=== PATIENT | female | born 1995 | race American Indian/Alaskan Native ===

== ENCOUNTER 2019-06-09 02:52 | Emergency (ER) | payer SELFPAY ==
[2019-06-09 03:09] VITALS: BP 112/71
[2019-06-09] MEDS ORDERED: NORCO 5/325 PO ONE (03:17)
--- NOTE | 2019-06-09 03:20 | Emergency Department Report ---
HPI - General Chief Complaint: Dental/Oral Time Seen by Provider: 06/09/19 03:16 - HPI HPI: 24-year-old -[place] female presents to the emergency department with a complaint of a toothache to the left lower jaw for the past 2-3 days. She went to see a dentist and was placed on ibuprofen and amoxicillin and she says she is supposed to get the tooth pulled. She has an appointment coming up next Thursday but says that the pain increased despite taking the prescribed medications. No fever. No drooling. No difficulty swallowing. She denies any other past medical history. She denies any tobacco or illicit drug use. ED Past Medical Hx - Past Medical History Previous Medical History?: No - Surgical History Past Surgical History?: No - Social History Smoking Status: Never Smoker Substance Use Type: Marijuana ED Review of Systems ROS: Stated complaint: TOOTHACHE Other details as noted in HPI Comment: All other systems reviewed and negative Constitutional: denies: chills, fever ENT: dental pain. denies: throat pain Physical Exam - Physical Exam Vital Signs: Vital Signs 06/09/19 03:00 Temperature 98.0 F Pulse Rate 82 Respiratory 18 Rate Blood Pressure 112/71 O2 Sat by Pulse 100 Oximetry Physical Exam: GENERAL: The patient is well-developed well-nourished. HENT: Normocephalic. Atraumatic. Patient has moist mucous membranes. EYES: Extraocular motions are intact. NECK: Supple. Trachea is midline. ABDOMEN: There is no abdominal distention. SKIN: Skin is warm and dry. NEURO: The patient is awake, alert, and oriented. The patient is cooperative. The patient has no focal neurologic deficits. Normal speech. MUSCULOSKELETAL: There is no tenderness or deformity. There is no evidence of acute injury. ED Course Vital Signs 06/09/19 03:00 Temperature 98.0 F Pulse Rate 82 Respiratory 18 Rate Blood Pressure 112/71 O2 Sat by Pulse 100 Oximetry ED Medical Decision Making - Medical Decision Making This patient presents with some left lower dental pain. No visible or palpable abscess. No drooling or trismus. She has an appointment early next week for a tooth extraction. She has a dentist to has already prescribed ibuprofen and amoxicillin. The patient does not appear to have any emergent medical condition at this time. She has been given a [place] for her discomfort. She has been instructed to continue with the anti-inflammatories and amoxicillin and to contact her dentist regarding her increased dental pain for either further evaluation or different treatment. She has been instructed to return to the emergency Department with any worsening of her symptoms or any acute distress. - Differential Diagnosis toothache, dental abscess, dry socket Critical Care Time: No Critical care attestation.: If time is entered above; I have spent that time in minutes in the direct care of this critically ill patient, excluding procedure time. ED Disposition Clinical Impression: Toothache Disposition: TO HOME OR SELFCARE Is pt being admited?: No Condition: Stable Instructions: Toothache (ED) Additional Instructions: Please follow-up with your dentist regarding getting your tooth pulled and for further evaluation of your tooth pain. Return to the emergency Department with any worsening of your symptoms, development of fever, swelling of your face, inability to swallow/drooling, or with any acute distress. Continue taking the antibiotics as previously prescribed. Referrals: Dentist, Your [Other] - DAISY Time of Disposition: 03:20
== END 2019-06-09 03:35 | disposition home or self-care (01) ==
LOC: ED 02:52
DX: K08.89 Other specified disorders of teeth and supporting structures (principal)

== ENCOUNTER 2019-08-05 17:50 | Emergency (ER) | payer OTHER | END 2019-08-05 21:05 | disposition left against medical advice (07) | LOC: ED 17:50 | DX: M54.9 Dorsalgia, unspecified (principal); Z53.21 Procedure and treatment not carried out due to patient leaving prior to being seen by health care provider ==

== ENCOUNTER 2021-04-24 12:44 | Emergency (ER) | payer OTHER ==
--- NOTE | 2021-04-24 15:25 | Emergency Department Report ---
Chief Complaint: Medical Clearance Stated Complaint: BACK PAINS MIDDLE Time Seen by Provider: 04/24/21 15:24 - HPI History of Present Illness: 25 yo comes to ER for work note for her job She has a/c back pain, which she reported them - and they need a note for return. She states she had back pain years ago and was told to get MRI and she never did. She denies pain, incontinence, weight loss. She has no fever or chills. No new trauma. No neuro deficit. She is 25 and otherwise healthy stating she did not know the ramification of reported a chronic issue - ROS Review of Systems: no symptoms at this tiime - Exam Vital Signs: vs as charted by RN Physical Exam: alert/oriented no focal deficit ambulatory non ill appearing no spine tenderness s1s2 lungs cta abd snt no cva tenderness MSE screening note: Focused history and physical exam performed. Due to findings the following was ordered: no required intervention referral to ortho Patient discussed with doctor:: CRISTI TAMAYO ED Disposition for MSE Clinical Impression: Back pain Disposition: 01 HOME / SELF CARE / HOMELESS Is pt being admited?: No Does the pt Need Aspirin: No Condition: Stable Referrals: SONY ODELL MD [Staff Physician] - 3-5 Days Forms: Work/School Release Form(ED) Time of Disposition: 15:25
[2021-04-24 15:36] VITALS: BP 127/90
== END 2021-04-24 15:59 | disposition home or self-care (01) ==
LOC: ED 12:44
DX: M54.6 Pain in thoracic spine (principal)
CPT/HCPCS: 99282